=== PATIENT | male | born 1980 | race Hispanic/Latino ===

== ENCOUNTER 2019-06-01 06:54 | Emergency (ER) | payer SELFPAY | END 2019-06-01 08:32 | disposition home or self-care (01) | LOC: ERS 06:54 → EDBD 06:54 → ERS 08:32 | DX: A63.0 Anogenital (venereal) warts (principal); B37.9 Candidiasis, unspecified; E78.5 Hyperlipidemia, unspecified; Z79.899 Other long term (current) drug therapy | CPT/HCPCS: 36416; 99283 ==